=== PATIENT | male | born 1970 | race Asian ===

== ENCOUNTER 2016-12-30 07:54 | Outpatient (CLI) | payer BC | END 2016-12-30 07:57 | disposition short-term general hospital (02) | LOC: AMB 07:54 | DX: R07.89 Other chest pain (principal); Z74.3 Need for continuous supervision | CPT/HCPCS: A0425; A0427 ==

== ENCOUNTER 2016-12-30 08:05 | Emergency (ER) | payer BC ==
[~2016-12-30] VITALS: Ht 175.3 cm; Wt 74.8 kg
[2016-12-30 08:11] VITALS: TEMP 98.4
[2016-12-30 08:31] LABS: PLATELET COUNT 185 K/uL (142-355)
[2016-12-30 08:39] LABS: PARTIAL THROMBOPLASTIN TIME 19.8 SECONDS (24.5-33.6)
[2016-12-30 08:54] LABS: POTASSIUM 3.7 mmol/L (3.6-5.2); SODIUM 136 mmol/L (136-145)
[2016-12-30 09:48] VITALS: BP 125/87
== END 2016-12-30 09:50 | disposition home or self-care (01) ==
LOC: ED 08:05
PROVIDERS: Emergency Medicine
DX: R07.89 Other chest pain (principal); K29.70 Gastritis, unspecified, without bleeding; B96.81 Helicobacter pylori [H. pylori] as the cause of diseases classified elsewhere
CPT/HCPCS: 80053; 82550; 83880; 84484; 85027; 85610; 85730; 86318; 93005; 96372; 99283; J2270; J2405

== ENCOUNTER 2017-03-20 08:53 | Outpatient (CLI) | payer OTHER | END 2017-03-20 19:00 | disposition home or self-care (01) | LOC: ED 08:53 | DX: S31.030A Puncture wound without foreign body of lower back and pelvis without penetration into retroperitoneum, initial encounter (principal); Z11.4 Encounter for screening for human immunodeficiency virus [HIV]; B96.81 Helicobacter pylori [H. pylori] as the cause of diseases classified elsewhere | CPT/HCPCS: 36415; 80074; 86703; G0432 ==

== ENCOUNTER 2017-06-21 06:49 | Outpatient (CLI) | payer BC | END 2017-06-21 06:53 | disposition short-term general hospital (02) | LOC: AMB 06:49 | DX: R07.89 Other chest pain (principal) | CPT/HCPCS: A0425; A0427 ==

== ENCOUNTER 2017-06-21 07:06 | Observation (INO) | payer BC ==
[~2017-06-21] VITALS: Ht 175.3 cm; Wt 66.3 kg
[2017-06-21 06:55] VITALS: BP 148/90; TEMP 98.3
[2017-06-21 08:20] LABS: PLATELET COUNT 101 K/uL (142-355)
[2017-06-21 08:31] LABS: POTASSIUM 3.5 mmol/L (3.6-5.2); SODIUM 137 mmol/L (136-145)
[2017-06-21 08:41] LABS: PARTIAL THROMBOPLASTIN TIME 23.9 SECONDS (24.5-33.6)
[2017-06-21 12:01] VITALS: BP 146/82; TEMP 98.5; Ht 175.3 cm; Wt 66.3 kg
[2017-06-21 16:00] VITALS: BP 139/85; TEMP 98.1
[2017-06-21 20:00] VITALS: BP 145/88; TEMP 98.3
[2017-06-22] VITALS: BP 146/88; TEMP 97.5
[2017-06-22 04:00] VITALS: BP 157/78; TEMP 97.7
[2017-06-22 06:07] LABS: POTASSIUM 3.6 mmol/L (3.6-5.2); SODIUM 139 mmol/L (136-145)
[2017-06-22 06:29] LABS: PLATELET COUNT 104 K/uL (142-355)
[2017-06-22 08:00] VITALS: BP 123/74; TEMP 97.9
[2017-06-22 12:00] VITALS: BP 116/76; TEMP 97.7
== END 2017-06-22 12:00 | disposition home or self-care (01) ==
LOC: ED 07:06 → MED/SURG 10:20
PROVIDERS: Specialist; ADMIT Family Medicine
DX: R07.89 Other chest pain (principal)
CPT/HCPCS: 36415; 80053; 82550; 83735; 84484; 85027; 85379; 85610; 85730; 93005; 96360; 96365; 96366; 96375; 99220; 99284; G0378; J1650; J1885